=== PATIENT | male | born 1930 | race Two or more races ===

== ENCOUNTER 2017-10-20 16:31 | Inpatient (IN) | payer MEDICAID, OTHER ==
[~2017-10-20] VITALS: Ht 180.3 cm; Wt 56.2 kg
[2017-10-20 16:45] VITALS: BP 133/79
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
[2017-10-20] MEDS ORDERED: MAGNESIUM HYDROXIDE 30 ML UDC PO PRN (17:00)
[2017-10-20] MEDS ORDERED: MAG HYDROX/AL HYDROX/SIMETH 30 ML UDC PO PRN (17:00)
[2017-10-20] MEDS ORDERED: ACETAMINOPHEN 325 MG TABLET PO PRN (17:00)
[2017-10-20] MEDS ORDERED: LORAZEPAM 0.5 MG TABLET PO PRN (17:00)
[2017-10-20] MEDS ORDERED: DORZ10DR11 EACHEYE (17:57)
[2017-10-20] MEDS ORDERED: BRIM5DRO3 EACHEYE (17:57)
[2017-10-20 19:54] VITALS: BP 113/61
[2017-10-21 07:34] LABS: BILIRUBIN,TOTAL 0.9 mg/dL (0.2-1.0); CARBON DIOXIDE 26 mmol/L (21-32); CHLORIDE 110 mmol/L (98-107); POTASSIUM 3.7 mmol/L (3.5-5.1); SODIUM SERUM 145 mmol/L (136-145); TOTAL PROTEIN, SERUM 5.8 g/dL (6.4-8.2)
[2017-10-21 07:35] LABS: CHOLESTEROL 114 mg/dL (<200); HDL CHOLESTEROL 53 mg/dL (40-60); LDL 61 mg/dL (0-99); TRIGLYCERIDES 52 mg/dL (30-150)
[2017-10-21 07:50] VITALS: BP 111/66
[2017-10-21 07:50] LABS: ALANINE AMINOTRANSFERASE 27 U/L (12-78); ALBUMIN 3.1 g/dL (3.4-5.0); ALKALINE PHOSPHATASE 48 U/L (46-116); ASPARTATE AMINOTRANSFERASE 18 U/L (15-37); CALCIUM, SERUM 8.3 mg/dL (8.5-10.1); CREATININE 0.8 mg/dL (0.6-1.3); GLUCOSE 93 mg/dL (74-106); UREA NITROGEN, BLOOD 20 mg/dL (7-18)
[2017-10-21] MEDS ORDERED: BRIMONIDINE TARTRATE OPHT SOLN 5 ML BOTTLE EACHEYE SCH (09:00)
[2017-10-21] MEDS: TIMOLOL MAL/DORZOLAM HCL OPHTH 10 ML BOTTLE EACHEYE SCH ×2 (09:10→17:46)
[2017-10-21] MEDS: BRIMONIDINE TARTRATE OPHT SOLN 5 ML BOTTLE EACHEYE SCH ×2 (09:10→17:46)
--- NOTE | 2017-10-21 13:46 | NUR ---
Initial Discharge Plan: Pt resides at [address] [place] [address], . Per pt, he would like to return home upon discharge. EVE will work with the pt and the MD regarding appropriate discharge plans. SW will form a safe and proper discharge plan.
--- NOTE | 2017-10-21 14:09 | NUR ---
WOUND CARE CONSULT: PT PRESENTS AMBULATORY AND CONTINENT WITH MULTIPLE RAISED SKIN LESIONS, PRESENT ON ADMSSION. DEFER TO MD FOR SKIN LESIONS. WILL SEE PRN. CURRENT WENDI SCORE IS 15.
--- NOTE | 2017-10-21 14:53 | NUR ---
SW spoke to Jonah Sheldon [phone] who is a good friend of the pt's. Jonah would like to transfer the pt to an assisted living facility even though the pt would like to return home.
[2017-10-21 15:56] VITALS: BP 148/93
--- NOTE | 2017-10-21 16:25 | NUR ---
EVE spoke to Huy Claire ([phone]) who is the insurance agent for the pt. A follow up was required.
[2017-10-21 19:51] VITALS: BP 135/98
[2017-10-21] MEDS: ESCITALOPRAM OXALATE (10 MG) 10 MG TABLET PO SCH (21:15)
[2017-10-21] MEDS: TEMAZEPAM 7.5 MG CAPSULE PO PRN (22:10)
[2017-10-22 08:00] VITALS: BP 132/88
[2017-10-22] MEDS: BRIMONIDINE TARTRATE OPHT SOLN 5 ML BOTTLE EACHEYE SCH ×2 (08:15→17:11)
[2017-10-22] MEDS: TIMOLOL MAL/DORZOLAM HCL OPHTH 10 ML BOTTLE EACHEYE SCH ×2 (08:15→17:11)
[2017-10-22] MEDS ORDERED: Z GUARD REMEDY 2 OZ OINT TP PRN (15:00)
[2017-10-22 16:00] VITALS: BP 117/68
[2017-10-22 20:12] VITALS: BP 103/61
[2017-10-22] MEDS: ESCITALOPRAM OXALATE (10 MG) 10 MG TABLET PO SCH (21:45)
[2017-10-22] MEDS: TEMAZEPAM 7.5 MG CAPSULE PO PRN (21:46)
--- NOTE | 2017-10-22 21:48 | NUR ---
TEMAZEPAM 7.5 MG CAP 1 PO GIVEN FOR SLEEP.
[2017-10-23 08:00] VITALS: BP 120/69
[2017-10-23] MEDS: TIMOLOL MAL/DORZOLAM HCL OPHTH 10 ML BOTTLE EACHEYE SCH ×2 (08:54→16:13)
[2017-10-23] MEDS: BRIMONIDINE TARTRATE OPHT SOLN 5 ML BOTTLE EACHEYE SCH ×2 (08:54→16:13)
--- NOTE | 2017-10-23 11:11 | NUR ---
EVE faxed an insurance review to Huy Claire ([phone]) who is the insurance plan specialist for the pt.
--- NOTE | 2017-10-23 11:12 | NUR ---
EVE faxed a placement referral for the pt to Tom ([phone]).
--- NOTE | 2017-10-23 13:49 | NUR ---
SW spoke to Hiren ([phone]) regarding potential placement at [facility].
[2017-10-23 15:56] VITALS: BP 124/77
[2017-10-23 20:27] VITALS: BP 104/60
[2017-10-23] MEDS: ESCITALOPRAM OXALATE (10 MG) 10 MG TABLET PO SCH (21:27)
[2017-10-24 08:20] VITALS: BP 119/71
[2017-10-24] MEDS: TIMOLOL MAL/DORZOLAM HCL OPHTH 10 ML BOTTLE EACHEYE SCH ×2 (08:36→16:46)
[2017-10-24] MEDS: BRIMONIDINE TARTRATE OPHT SOLN 5 ML BOTTLE EACHEYE SCH ×2 (08:36→16:46)
--- NOTE | 2017-10-24 09:55 | NUR ---
EVE faxed an insurance review to Huy Claire ([phone]) who is the title insurance sales representative for the pt. EVE also spoke to Huy and determined that he would be covered until we discharge or transfer him.
[2017-10-24 16:00] VITALS: BP 131/81
[2017-10-24 20:28] VITALS: BP 104/68
[2017-10-24] MEDS: ESCITALOPRAM OXALATE (10 MG) 10 MG TABLET PO SCH (21:53)
[2017-10-24] MEDS: TEMAZEPAM 7.5 MG CAPSULE PO PRN (21:54)
[2017-10-25 08:00] VITALS: BP 131/91
[2017-10-25] MEDS: TIMOLOL MAL/DORZOLAM HCL OPHTH 10 ML BOTTLE EACHEYE SCH ×2 (09:05→17:20)
[2017-10-25] MEDS: BRIMONIDINE TARTRATE OPHT SOLN 5 ML BOTTLE EACHEYE SCH ×2 (09:05→17:20)
--- NOTE | 2017-10-25 09:45 | NUR ---
EVE faxed an insurance review to Huy Claire ([phone]) who is the insurance account executive for the pt.
--- NOTE | 2017-10-25 14:41 | NUR ---
EVE spoke to Jonah Sheldon and updated him on the pt's discharge plan.
[2017-10-25 15:53] VITALS: BP 125/76
[2017-10-25 19:55] VITALS: BP 107/69
[2017-10-25] MEDS: ESCITALOPRAM OXALATE (10 MG) 10 MG TABLET PO SCH (21:43)
[2017-10-25] MEDS: TEMAZEPAM 7.5 MG CAPSULE PO PRN (21:44)
[2017-10-26 08:00] VITALS: BP 131/86
[2017-10-26] MEDS: TIMOLOL MAL/DORZOLAM HCL OPHTH 10 ML BOTTLE EACHEYE SCH ×2 (09:12→17:31)
[2017-10-26] MEDS: BRIMONIDINE TARTRATE OPHT SOLN 5 ML BOTTLE EACHEYE SCH ×2 (09:12→17:31)
--- NOTE | 2017-10-26 10:30 | NUR ---
A LITTLE UNSTEADY,BUT USES CAUTION AND WALKER.
--- NOTE | 2017-10-26 14:30 | NUR ---
DR. AJ,DR. FERNANDO IN TO SEE PT.
[2017-10-26 16:14] VITALS: BP 111/68
[2017-10-26 20:00] VITALS: BP 140/75
[2017-10-26] MEDS: TEMAZEPAM 7.5 MG CAPSULE PO PRN (22:07)
[2017-10-26] MEDS: ESCITALOPRAM OXALATE (10 MG) 10 MG TABLET PO SCH (22:08)
[2017-10-27 08:00] VITALS: BP 125/87
[2017-10-27] MEDS: BRIMONIDINE TARTRATE OPHT SOLN 5 ML BOTTLE EACHEYE SCH ×2 (08:43→16:19)
[2017-10-27] MEDS: TIMOLOL MAL/DORZOLAM HCL OPHTH 10 ML BOTTLE EACHEYE SCH ×2 (08:45→16:19)
--- NOTE | 2017-10-27 09:10 | NUR ---
GPS/RN-NOTES PATIENT REQUESTING TO CHANGE HIS DIET TEXTURE TO PUREE DUE TO SEVERAL LOSS OF HIS UPPER TEETH. CAD CAM PROGRAMMER MADE AWARE AND CHANGE PT. REQUESTED.
[2017-10-27 16:02] VITALS: BP 112/68
[2017-10-27 19:56] VITALS: BP 99/51
[2017-10-27] MEDS: ESCITALOPRAM OXALATE (10 MG) 10 MG TABLET PO SCH (21:22)
[2017-10-27 23:00] VITALS: BP 110/68
[2017-10-28 06:41] LABS: CALCIUM, SERUM 8.5 mg/dL (8.5-10.1); CARBON DIOXIDE 32 mmol/L (21-32); CHLORIDE 103 mmol/L (98-107); CREATININE 0.8 mg/dL (0.6-1.3); GLUCOSE 95 mg/dL (74-106); POTASSIUM 3.7 mmol/L (3.5-5.1); SODIUM SERUM 140 mmol/L (136-145); UREA NITROGEN, BLOOD 12 mg/dL (7-18)
[2017-10-28 08:00] VITALS: BP 132/72
[2017-10-28] MEDS: TIMOLOL MAL/DORZOLAM HCL OPHTH 10 ML BOTTLE EACHEYE SCH ×2 (08:59→17:53)
[2017-10-28] MEDS: BRIMONIDINE TARTRATE OPHT SOLN 5 ML BOTTLE EACHEYE SCH ×2 (09:00→17:53)
--- NOTE | 2017-10-28 09:16 | NUR ---
EVE faxed an insurance review to Huy Claire ([phone]) who is the director life insurance for the pt.
[2017-10-28 16:00] VITALS: BP 125/61
[2017-10-28 19:37] VITALS: BP 114/68
[2017-10-28] MEDS: ESCITALOPRAM OXALATE (10 MG) 10 MG TABLET PO SCH (21:59)
[2017-10-29] MEDS: BRIMONIDINE TARTRATE OPHT SOLN 5 ML BOTTLE EACHEYE SCH ×2 (08:18→16:16)
[2017-10-29] MEDS: TIMOLOL MAL/DORZOLAM HCL OPHTH 10 ML BOTTLE EACHEYE SCH ×2 (08:18→16:16)
[2017-10-29 08:52] VITALS: BP 111/64
[2017-10-29 16:00] VITALS: BP 130/77
[2017-10-29 20:28] VITALS: BP 135/52
[2017-10-29] MEDS: ESCITALOPRAM OXALATE (10 MG) 10 MG TABLET PO SCH (21:16)
[2017-10-29 23:00] VITALS: BP 130/65
[2017-10-30 08:00] VITALS: BP 111/69
[2017-10-30] MEDS: BRIMONIDINE TARTRATE OPHT SOLN 5 ML BOTTLE EACHEYE SCH ×2 (08:56→17:04)
[2017-10-30] MEDS: TIMOLOL MAL/DORZOLAM HCL OPHTH 10 ML BOTTLE EACHEYE SCH ×2 (08:56→17:04)
--- NOTE | 2017-10-30 10:58 | NUR ---
GPS/RN-NOTES PATIENT C/O INDIGESTION MAALOX 30ML GIVEN PRN ORDER. WILL CONT. MONITORING.
--- NOTE | 2017-10-30 12:56 | NUR ---
EVE spoke to Sujatha at [facility] located on [address] [place] [address] ([phone]) and confirmed that the pt will be discharging from the hospital and arriving at their facility around 5pm today. EVE faxed a referral to [phone] after confirming this arrangement.
--- NOTE | 2017-10-30 12:58 | NUR ---
EVE spoke to Jonah Sheldon and updated him about the pt discharging today and going to [facility] located on [address] [place] [address] ([phone]).
--- NOTE | 2017-10-30 15:43 | NUR ---
Discharge note: Pt will be discharged to [facility] located at [address] [place] [id number] ([phone]) via [facility] (Trip #[id number]) at 4:30pm. Pt denied suicidal and homicidal ideation as well as visual and auditory hallucinations. Pts mood and affect are calm and euthymic. Pt was agreeable to the board and care placement. Pt was given referrals for substance abuse such as [facility] on [address] [place] [address] , [facility] on [address] [place], [place] [id number] and [facility] on [address] [place] [address] . Pt will be under the care of a psychiatrist, Dr. Ascencio ([address] [facility] [address], [place] [address]; [phone]) and a medical doctor, Dr. Barrios ([address] [facility], [address], [place] [address]; [phone]).
[2017-10-30 16:00] VITALS: BP 141/81
--- NOTE | 2017-10-30 16:36 | NUR ---
EVE faxed a discharge clinical review to Huy Claire ([phone]) who is the reinsurance accountant for the pt.
--- NOTE | 2017-10-30 17:30 | NUR ---
GPS/RN-NOTES PATIENT WAS DISCHARGE TO [facility] TODAY. DR. TOSCANO AND MANAGER HOSPITALITY LEATHA AWARE AND AGREES OF PATIENT DISCHARGE WITH ORDERS. PATIENT DID NOT VERBALIZE SI/HI,DENIES VISUAL/AUDITORY HALLUCINATION AT THE TIME OF DISCHARGE.PATIENT LEFT THE UNIT IN STABLE CONDITION ALERT ORIENTED X3,AMBULATORY USING WALKER. EMERGENCY MEDICAL TECHNICIAN BY AMBULANCE VIA GURNEY WITH TWO STAFF ASSIST. LOUIE JOSEPH WAS MADE AWARE OF PATIENT DISCHARGE. ALL DISCHARGE PAPERS WAS ENDORSED TO THE AMBULANCE STAFF.
[2017-10-30] MEDS ORDERED: ENSURE ENLIVE 237 ML LIQUID (VANILLA) PO SCH (22:00)
--- NOTE | 2018-01-31 15:31 | NUR ---
Substance Abuse Follow Up: SW attempted to conduct the follow up but the pt did not answer the three times that he was called on 11/13/17.
== END 2017-10-30 17:30 | disposition home or self-care (01) | DRG 885 ==
LOC: GPS 16:31
PROVIDERS: ADMIT Psychiatry & Neurology Psychiatry; ATTEND Nurse Practitioner Acute Care
DX: F32.2 Major depressive disorder, single episode, severe without psychotic features (principal); N17.0 Acute kidney failure with tubular necrosis; E44.0 Moderate protein-calorie malnutrition; Z68.1 Body mass index [BMI] 19.9 or less, adult; R45.851 Suicidal ideations; H40.9 Unspecified glaucoma; F03.90 Unspecified dementia, unspecified severity, without behavioral disturbance, psychotic disturbance, mood disturbance, and anxiety; E88.09 Other disorders of plasma-protein metabolism, not elsewhere classified; F09 Unspecified mental disorder due to known physiological condition
CPT/HCPCS: 36415; 80048-TC; 80053-TC; 80061-TC; 87081-TC